=== PATIENT | female | born 1995 | race Caucasian/White ===

== ENCOUNTER 2024-09-26 16:59 | Emergency (ER) | payer SELFPAY ==
[~2024-09-26] VITALS: Ht 157.5 cm; Wt 61.2 kg
[2024-09-26 17:05] VITALS: PULSE 85; RESP 14; TEMP 97.6; O2SAT 100
[2024-09-26 18:43] LABS: CORONAVIRUS COVID-19 AG NEGATIVE (NEGATIVE); INFLUENZA A AG NEGATIVE (NEGATIVE); INFLUENZA B AG NEGATIVE (NEGATIVE); STREPTOCOCCUS GRP A ANTIGEN NEGATIVE (NEGATIVE)
[2024-09-26] MEDS ORDERED: AUGMENTIN 500-1 EACH PO (18:47)
== END 2024-09-26 19:28 | disposition home or self-care (01) ==
LOC: ER 18:04
DX: R21 Rash and other nonspecific skin eruption (principal); J02.9 Acute pharyngitis, unspecified; R05.9 Cough, unspecified; Z11.52 Encounter for screening for COVID-19
CPT/HCPCS: 83518; 87070; 99282